=== PATIENT | male | born 1965 | race Caucasian/White ===

== ENCOUNTER 2017-03-06 15:09 | Emergency (ER) | payer OTHER ==
[~2017-03-06] VITALS: Ht 175.3 cm; Wt 90.9 kg
[~2017-03-06 15:09] MED LIST: PERCOCET 5/31 TABLET PO; POLYMYXIN B-TMP10 ML BOTH EYES; VIGAMOX 0.60 DROP/3 BOTH EYES
[2017-03-06 16:13] LABS: HEMATOCRIT 40.9 % (38.0-50.0); MCHC 35.2 G/DL (30.0-36.0); MCV 88.1 FL (86-99); PLATELET COUNT 118 K/uL (156-360); RBC DIS.WIDTH-CV 12.2 % (11.8-14.6); RBC DIS.WIDTH-SD 39.3 % (39-53); RED BLOOD COUNT 4.64 M/uL (4.00-5.50); WHITE BLOOD COUNT 5.1 K/uL (4.1-10.2)
[2017-03-06 16:24] LABS: CHLORIDE 103 mEq/L (99-109); POTASSIUM 3.3 mEq/L (3.7-5.4); SODIUM 140 mEq/L (136-147)
[2017-03-06 16:26] LABS: GLUCOSE 88 mg/dL (70-99)
[2017-03-06 16:27] LABS: ANION GAP 12 MEQ/L (2-14)
[2017-03-06 16:28] LABS: TOTAL BILIRUBIN 0.7 mg/dL (0.0-1.0)
[2017-03-06 16:29] LABS: ALKALINE PHOSPHATASE 86 IU/L (3-129)
[2017-03-06 16:30] LABS: GFR ESTIMATE (CALCULATED) > 59 mL/min/
[2017-03-06 16:31] LABS: UREA NITROGEN (BUN) 11 mg/dL (9-23)
[2017-03-06 16:33] LABS: CREATINE KINASE 111 IU/L (1-294); LIPASE 15 U/L (1.0-51.0); TOTAL CK 111 IU/L (1-294)
[2017-03-06 16:34] LABS: TROP-I INTERPRETATION NEGATIVE; TROPONIN-I < 0.01 ng/mL (0.0-0.30)
[2017-03-06 16:39] LABS: CK-MB 0.8 ng/mL (0.0-4.9)
[2017-03-06 17:06] LABS: ADD MIUA? YES; BILIRUBIN NEGATIVE; BLOOD SMALL; COLOR STRAW ((YELLOW)); GLUCOSE (STRIP) NEGATIVE; KETONES NEGATIVE; LEUKOCYTES NEGATIVE; NITRITE NEGATIVE; PROTEIN (STRIP) NEGATIVE; SPECIFIC GRAVITY 1.006 (1.000-1.030); UROBILINOGEN 0.2 MG/DL (0.2-1.0)
[2017-03-06 17:17] LABS: BACTERIA NONE SEEN /HPF; EPITHELIAL CELLS NONE SEEN /HPF; MUCUS TRACE /LPF; RED BLOOD CELLS 0-5 /HPF (0-5); WHITE BLOOD CELLS 0-5 /HPF (0-5)
[2017-03-06 18:30] VITALS: BP 135/86
== END 2017-03-06 18:32 | disposition home or self-care (01) ==
LOC: EME 15:09
PROVIDERS: Physician Assistant
DX: E86.0 Dehydration (principal); M10.9 Gout, unspecified; K44.9 Diaphragmatic hernia without obstruction or gangrene; K57.30 Diverticulosis of large intestine without perforation or abscess without bleeding; F17.200 Nicotine dependence, unspecified, uncomplicated; Z98.890 Other specified postprocedural states
CPT/HCPCS: 71260; 74177; 80053; 81003; 82550; 82553; 83690; 84484; 85027; 93005; 99281; 99285; J7030